=== PATIENT | female | born 1930 | race Caucasian/White ===

== ENCOUNTER → 2017-04-14 | Outpatient (CLI) | payer MEDICARE, OTHER ==
[~2017-04-14] MED LIST: ALN70T PO; LEVO500T2 PO; LOSA50TA36 PO; LSRT50T PO; NEBI5TAB8 PC
--- NOTE | 2017-04-15 10:53 | Diagnostic Imaging Report ---
Bilateral screening mammogram The current study was also evaluated with a Computer Aided Detection (CAD) system. Indication: Screening. No current complaints stated on the questionnaire. COMPARISON: 02/27/16 FINDINGS: The breasts are composed of scattered fibroglandular densities. No mass, architectural distortion or suspicious cluster of calcifications seen. Allowing for technique and positional differences, no suspicious change is seen. IMPRESSION: No significant change. ACR BI-RADS Category 2: Benign findings. Result letter will be mailed to the patient. Note: At least 10% of breast cancer is not imaged by mammography. Dictated by: Dictated on workstation # [id number]
== END ==
LOC: RAD 09:46
PROVIDERS: ATTEND Family Medicine
DX: Z12.31 Encounter for screening mammogram for malignant neoplasm of breast (principal)
CPT/HCPCS: 77067

== ENCOUNTER 2017-07-27 21:59 | Observation (INO) | payer MEDICARE, OTHER ==
[~2017-07-27] VITALS: Ht 167.6 cm; Wt 56.7 kg
[2017-07-27] MEDS ORDERED: ASPIRIN 81 MG CHEW (CHILDREN'S ASA) ONE (22:04)
[2017-07-27] MEDS ORDERED: RX-NITROGLYCERIN 0.4 MG TAB BTL 25'S SL ONE (22:04)
--- NOTE | 2017-07-27 22:27 | ED Chest Pain ---
General Chief Complaint: Chest Pain Stated Complaint: CHEST PAIN Source: patient Exam Limitations: no limitations History of Present Illness Time seen by provider: 22:23 Initial Comments Patient present to ER by EMS with a chief complaint of chest pressure that started around 1:00 this afternoon progressively gotten worse it is substernal and radiates to the right chest. There is no arm shoulder neck or jaw involvement. She has no numbness, chills, nausea, shortness of breath. She has no cough or fevers. She has no dysuria, constipation, diarrhea. She is not known to have any cardiac history. She says she had an echo one ago that may have shown some regurgitation of one of her bowels. She does not use tobacco products. No alcohol. No thyroid disease however she does take by systolic and amlodipine for blood pressure. Allergies and Home Medications Allergies Coded Allergies: No Known Drug Allergies (Unverified , 04/13/12) Home Medications Nebivolol HCl 5 Mg Tablet, 1 TAB PC DAILY, #90 (Reported) Review of Systems Constitutional: No chills, No diaphoresis, No fever, No malaise EENTM: No Double Vision, No Eye Pain Respiratory: Denies Cough, Denies Shortness of Air Cardiovascular: See HPI (chest pressure), Denies Chest Pain, Denies Irregular Heart Rate, Denies Lightheadedness, Denies Palpitations, Denies Syncope Gastrointestinal: Denies Abdomen Distended, Denies Abdominal Pain, Denies Constipated, Denies Diarrhea, Denies Nausea Genitourinary: Denies Burning, Denies Discharge Musculoskeletal: No back pain, No joint pain Skin: No pruritus, No rash Psychiatric/Neurological: Denies Headache, Denies Numbness, Denies Paresthesia Past Hlmhcmr-Rhoram-Mxnylb Hx Patient Social History Alcohol Use: Denies Use Recreational Drug Use: No Smoking Status: Never a Smoker Recent Foreign Travel: No Contact w/Someone Who Travel: No Recent Hopitalizations: No Physical Abuse: No Sexual Abuse: No Immunizations Up To Date Date of Pneumonia Vaccine: Mar 12, 2005 Seasonal Allergies Seasonal Allergies: No Surgeries History of Surgeries: Yes Surgeries: Adenoidectomy, Breast, Hysterectomy, Lumpectomy, Oophorectomy, Tonsillectomy Respiratory History of Respiratory Disorde: No Cardiovascular History of Cardiac Disorders: Yes Cardiac Disorders: Hypertension Neurological History of Neurological Disord: No 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, Menopausal Genitourinary Genitourinary Disorders: UTI-Chronic Gastrointestinal History of Gastrointestinal Di: No Gastrointestinal Disorders: Gastroesophageal Reflux Musculoskeletal History of Musculoskeletal Dis: Yes Musculoskeletal Disorders: Arthritis Endocrine History of Endocrine Disorders: No HEENT HEENT Disorders: Macular Degeneration Cancer History of Cancer: Yes Cancer: Breast Psychosocial History of Psychiatric Problem: No Suicide Risk Score: 0 Integumentary History of Skin or Integumenta: No Blood Transfusions History of Blood Disorders: No Adverse Reaction to a Blood Tr: No Physical Exam Vital Signs Vital Sign - Last 12Hours 07/27/17 22:00 Temp 97.5 Pulse 93 Resp 18 B/P (MAP) 156/75 Pulse Ox 99 O2 Delivery Nasal Cannula O2 Flow Rate 2.0 Capillary Refill : Less Than 3 Seconds General Appearance: No Apparent Distress, WD/WN HEENT: PERRL/EOMI, Pharynx Normal Neck: Full Range of Motion, Supple Respiratory: Chest Non Tender, Lungs Clear, Normal Breath Sounds, No Accessory Muscle Use Cardiovascular: Regular Rate, Rhythm, No Edema, No Gallop, No JVD, Normal Peripheral Pulses Gastrointestinal: Normal Bowel Sounds, Non Tender, Soft Extremity: Normal Capillary Refill, Normal Inspection, Non Tender, No Pedal Edema Neurologic/Psychiatric: Alert, Oriented x3 Skin: Normal Color, Warm/Dry Progress/Results/Core Measures Results/Orders Lab Results Laboratory Tests Test 07/27/17 22:09 Range/Units White Blood Count 7.5 4.3-11.0 10^3/uL Red Blood Count 4.41 4.35-5.85 10^6/uL Hemoglobin 13.4 11.5-16.0 G/DL Hematocrit 42 35-52 % Mean Corpuscular Volume 94 80-99 FL Mean Corpuscular Hemoglobin 30 25-34 PG Mean Corpuscular Hemoglobin Concent 32 32-36 G/DL Red Cell Distribution Width 13.1 10.0-14.5 % Platelet Count 226 130-400 10^3/uL Mean Platelet Volume 10.8 H 7.4-10.4 FL Neutrophils (%) (Auto) 55 42-75 % Lymphocytes (%) (Auto) 30 12-44 % Monocytes (%) (Auto) 9 0-12 % Eosinophils (%) (Auto) 5 0-10 % Basophils (%) (Auto) 1 0-10 % Neutrophils # (Auto) 4.1 1.8-7.8 X 10^3 Lymphocytes # (Auto) 2.3 1.0-4.0 X 10^3 Monocytes # (Auto) 0.7 0.0-1.0 X 10^3 Eosinophils # (Auto) 0.4 H 0.0-0.3 10^3/uL Basophils # (Auto) 0.1 0.0-0.1 10^3/uL Prothrombin Time 11.9 L 12.2-14.7 SEC INR Comment 0.9 0.8-1.4 Activated Partial Thromboplast Time 28 24-35 SEC Sodium Level 138 135-145 MMOL/L Potassium Level 3.8 3.6-5.0 MMOL/L Chloride Level 103 98-107 MMOL/L Carbon Dioxide Level 25 21-32 MMOL/L Anion Gap 10 5-14 MMOL/L Blood Urea Nitrogen 14 7-18 MG/DL Creatinine 0.75 0.60-1.30 MG/DL Estimat Glomerular Filtration Rate > 60 BUN/Creatinine Ratio 19 Glucose Level 117 H 70-105 MG/DL Calcium Level 9.4 8.5-10.1 MG/DL Magnesium Level 2.3 1.8-2.4 MG/DL Total Bilirubin 0.2 0.1-1.0 MG/DL Aspartate Amino Transf (AST/SGOT) 21 5-34 U/L Alanine Aminotransferase (ALT/SGPT) 19 0-55 U/L Alkaline Phosphatase 69 40-136 U/L Myoglobin 34.4 10.0-92.0 NG/ML Troponin I < 0.30 <0.30 NG/ML Total Protein 6.9 6.4-8.2 GM/DL Albumin 3.8 3.2-4.5 GM/DL My Orders Orders - JO ANN DOBBINS Aspirin Chewable Tablet (Baby Aspirin Ch (07/27/17 22:04) Rx-Nitroglycerin Sl Tabs (Rx-Nitrostat S (07/27/17 22:04) Cbc With Automated Diff (07/27/17 22:22) Magnesium (07/27/17 22:22) Chest 1 View, Ap/Pa Only (07/27/17 22:22) Ekg Tracing (07/27/17 22:22) Cardiac Profile 1 (07/27/17 22:22) Comprehensive Metabolic Panel (07/27/17 22:22) Myoglobin Serum (07/27/17 22:22) Protime With Inr (07/27/17 22:22) Partial Thromboplastin Time (07/27/17 22:22) O2 (07/27/17 22:22) Monitor-Rhythm Ecg Trace Only (07/27/17 22:22) Lipid Panel (07/28/17 06:00) Aspirin Chewable Tablet (Baby Aspirin Ch (07/27/17 22:30) Rx-Nitroglycerin Sl Tabs (Rx-Nitrostat S (07/27/17 22:30) Saline Lock/Iv-Start (07/27/17 22:22) Lidocaine 2% Viscous 15 Ml (Xylocaine Vi (07/27/17 22:45) Antacid Suspension (Mylanta Suspension (07/27/17 22:45) Medications Given in ED Current Medications Medications Dose Ordered Sig/Moncho Route Start Time Stop Time Status Last Admin Dose Admin Al Hydrox/Mg Hydrox/Simethicone 30 ml ONCE ONCE PO 07/27/17 22:45 07/27/17 22:46 DC 07/27/17 22:51 30 ML Aspirin 81 mg STK-MED ONCE .ROUTE 07/27/17 22:04 07/27/17 22:11 DC 07/27/17 22:13 81 MG Lidocaine HCl 15 ml ONCE ONCE PO 07/27/17 22:45 07/27/17 22:46 DC 07/27/17 22:51 15 ML Nitroglycerin 0.4 mg STK-MED ONCE SL 07/27/17 22:04 07/27/17 22:12 DC 07/27/17 22:14 0.4 MG Vital Signs/I&O Vital Sign - Last 12Hours 07/27/17 07/27/17 07/27/17 22:00 22:00 22:00 Temp 97.5 Pulse 93 Resp 18 B/P (MAP) 156/75 Pulse Ox 99 99 O2 Delivery Nasal Cannula Nasal Cannula Room Air O2 Flow Rate 2.0 2.00 Progress Note : Time: 22:33 Progress Note Concern for atypical ACS presentation versus GI versus other. We'll go ahead and get a GI cocktail to her. Initial EKG does not demonstrate a STEMI. ECG Initial ECG Impression Date: Jul 27, 2017 Initial ECG Impression Time: 22:01 Initial ECG Rate: 93 Initial ECG Rhythm: Normal Sinus Initial ECG Intervals: TX (228) Initial ECG Impression: 1st Degree AV Block Initial ECG Comparisson: No Previous ECG Available Comment No ST segment depression or elevation. Diagnostic Imaging Diagonstic Imaging: Xray Plain Films/CT/US/NM/MRI: chest Comments No acute cardiopulmonary processes. Reviewed: Reviewed by Me Departure Impression Impression: Primary Impression: Chest tightness or pressure Additional Impression: ACS (acute coronary syndrome) Disposition: ADMITTED INPATIENT Condition: Stable Admissions Decision to Admit Reason: Admit from ER (General) Decision to Admit/Date: Jul 27, 2017 Time/Decision to Admit Time: 00:14 Departure-Patient Inst. Referrals: DONALD ANDRE DO (PCP/Family) Primary Care Physician Copy Copies To 1: DONALD ANDRE TITUS J Jul 27, 2017 22:27
[2017-07-27] MEDS ORDERED: ASPIRIN 81 MG CHEW (CHILDREN'S ASA) PO ONE (22:30)
[2017-07-27] MEDS ORDERED: RX-NITROGLYCERIN 0.4 MG TAB BTL 25'S SL PRN (22:30)
[2017-07-27 22:32] LABS: BASOPHILS # (AUTO) 0.1 10^3/uL (0.0-0.1); BASOPHILS % (AUTO) 1 % (0-10); EOSINOPHILS # (AUTO) 0.4 10^3/uL (0.0-0.3); EOSINOPHILS % (AUTO) 5 % (0-10); LYMPHOCYTES # (AUTO) 2.3 X 10^3 (1.0-4.0); LYMPHOCYTES % (AUTO) 30 % (12-44); MEAN CORPUSCULAR HEMOGLOBIN 30 PG (25-34); MEAN CORPUSCULAR HGB CONC 32 G/DL (32-36); MEAN CORPUSCULAR VOLUME 94 FL (80-99); MEAN PLATELET VOLUME 10.8 FL (7.4-10.4); MONOCYTES # (AUTO) 0.7 X 10^3 (0.0-1.0); MONOCYTES % (AUTO) 9 % (0-12); NEUTROPHILS # (AUTO) 4.1 X 10^3 (1.8-7.8); NEUTROPHILS % (AUTO) 55 % (42-75); PLATELET COUNT 226 10^3/uL (130-400); RED BLOOD COUNT 4.41 10^6/uL (4.35-5.85); RED CELL DISTRIBUTION WIDTH 13.1 % (10.0-14.5); WHITE BLOOD COUNT 7.5 10^3/uL (4.3-11.0)
[2017-07-27 22:36] LABS: INR 0.9 (0.8-1.4); PROTHROMBIN TIME PATIENT 11.9 SEC (12.2-14.7)
[2017-07-27] MEDS ORDERED: ANTACID SUSP 30 ML UDC (MYLANTA) PO ONE (22:45)
[2017-07-27] MEDS ORDERED: LIDOCAINE 2% VISCOUS 15 ML UDC PO ONE (22:45)
[2017-07-27 22:57] LABS: ALANINE AMINOTRANSFERASE 19 U/L (0-55); ALBUMIN 3.8 GM/DL (3.2-4.5); ANION GAP 10 MMOL/L (5-14); ASPARTATE AMINO TRANSFERASE 21 U/L (5-34); BILIRUBIN,TOTAL 0.2 MG/DL (0.1-1.0); BLOOD UREA NITROGEN 14 MG/DL (7-18); BUN/CREATININE RATIO 19; CALCIUM 9.4 MG/DL (8.5-10.1); CARBON DIOXIDE 25 MMOL/L (21-32); CHLORIDE 103 MMOL/L (98-107); CREATININE SERUM 0.75 MG/DL (0.60-1.30); GFR ESTIMATED > 60; GLUCOSE 117 MG/DL (70-105); MAGNESIUM 2.3 MG/DL (1.8-2.4); POTASSIUM 3.8 MMOL/L (3.6-5.0); SODIUM 138 MMOL/L (135-145); TOTAL PROTEIN 6.9 GM/DL (6.4-8.2)
[2017-07-27 23:04] LABS: MYOGLOBIN SERUM 34.4 NG/ML (10.0-92.0)
[2017-07-28] MEDS ORDERED: NS IV 1000 ML 1,000 ML ONE (01:16)
[2017-07-28] MEDS ORDERED: NS IV 1000 ML 1,000 ML IV SCH (02:15)
[2017-07-28] MEDS ORDERED: ONDANSETRON 4 MG/2 ML (SDV) Z0FRAN IV PRN (02:15)
[2017-07-28] MEDS ORDERED: morphine INJ 4 MG/ML 1 ML (VIAL/SYRINGE) IV PRN (02:15)
[2017-07-28] MEDS ORDERED: ANTACID SUSP 30 ML UDC (MYLANTA) PO PRN (02:15)
[2017-07-28] MEDS ORDERED: NITROGLYCERIN SUBLINGUAL 0.4 MG TAB (NITROSTAT) SL PRN (02:15)
[2017-07-28 03:35] VITALS: BP 137/69
[2017-07-28 04:50] LABS: CHOLESTEROL 201 MG/DL (< 200); DIRECT LDL 124 MG/DL (1-129); TRIGLYCERIDES 38 MG/DL (<150); VLDL CHOLESTEROL 8 MG/DL (5-40)
[2017-07-28 08:00] VITALS: BP 152/65
[2017-07-28] MEDS ORDERED: AMLO5TAB2 PO (08:06)
[2017-07-28] MEDS ORDERED: NEBI5TAB8 PO (08:06)
[2017-07-28] MEDS ORDERED: CALC-6 PO (08:08)
[2017-07-28] MEDS ORDERED: VIT1CAPS44 PO (08:08)
--- NOTE | 2017-07-28 08:08 | Diagnostic Imaging Report ---
INDICATION: Intermittent chest pain. COMPARISON: 08/25/2016. FINDINGS: Single frontal view of the chest demonstrates normal heart size and pulmonary vascularity. The lungs are well aerated and clear. No large pleural effusion or pneumothorax is seen. The visualized osseous structures show no acute abnormalities. IMPRESSION: No acute cardiopulmonary process. Dictated by: Dictated on workstation # [id number]
[2017-07-28] MEDS ORDERED: amLODIPine 5 MG (NORVASC) TAB PO SCH (09:00)
[2017-07-28] MEDS ORDERED: NEBIVOLOL 5 MG TAB (BYSTOLIC) PO SCH ×2 (09:00→21:00)
[2017-07-28] MEDS ORDERED: lisINopril 5 MG (PRINIVIL) TABLET PO SCH (09:00)
[2017-07-28] MEDS: ASPIRIN E.C. 325 MG (ECOTRIN) TABLET PO SCH (10:52)
[2017-07-28 12:00] VITALS: BP 157/70
--- NOTE | 2017-07-28 12:33 | History & Physicial ---
History of Present Illness History of Present Illness Reason for visit/HPI This is an 87 year old female with a history of Hypertension and GERD who presented to the emergency room with substernal chest pressure radiating to her right shoulder. Her EKG showed no acute S-T segment changes and her cardiac enzymes were negative, however, it was decided to admit her to rule out any cardiac etiology. At this time the patient has only had one more mild episode of chest pressure since admission and this did occur after drinking some coffee. Date of Admission Jul 28, 2017 at 00:20 Date Seen by Provider: Jul 28, 2017 Time Seen by Provider: 12:24 I consulted on this patient on 07/28/17 12:24 Attending Physician Seda Garcia MD Admitting Physician Elly Andre DO Consult Allergies and Home Medications Allergies Coded Allergies: No Known Drug Allergies (Unverified , 04/13/12) Home Medications Amlodipine Besylate 5 Mg Tablet, 5 MG PO DAILY, (Reported) Calcium Carbonate/Vitamin D3 1 Each Tablet, 1 CAP PO 1200, (Reported) Nebivolol HCl 5 Mg Tablet, 5 MG PO HS, (Reported) Vit C/E/Zn/Coppr/Lutein/Zeaxan 1 Each Capsule, 1 CAP PO 1200,1800, (Reported) Past Lwtxnbc-Gtkoeg-Vruthf Hx Patient Social History Alcohol Use: Denies Use Recreational Drug Use: No Smoking Status: Never a Smoker Physical Abuse Screen: No Sexual Abuse: No Recent Foreign Travel: No Contact w/other who traveled: No Recent Hopitalizations: No Recent Infectious Disease Expo: No Immunizations Up To Date Date of Pneumonia Vaccine: Mar 12, 2005 Seasonal Allergies Seasonal Allergies: No Surgeries Yes Adenoidectomy, Breast, Hysterectomy, Lumpectomy, Oophorectomy, Tonsillectomy Respiratory No Cardiovascular Yes Hypertension 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, Menopausal Genitourinary No UTI-Chronic Gastrointestinal Yes Gastroesophageal Reflux Musculoskeletal Yes Arthritis Endocrine History of Endocrine Disorders: No HEENT History of HEENT Disorders: Yes HEENT Disorders: Macular Degeneration Cancer Yes Breast Psychosocial History of Psychiatric Problem: No Integumentary History of Skin or Integumenta: No Blood Transfusions History of Blood Disorders: No Adverse Reaction to a Blood Tr: No Constitutional: No no symptoms reported, No see HPI, No chills, No diaphoresis , No dizziness, No fever, No malaise, No weakness, No weight gain, No weight loss, No other EENTM: No see HPI, No no symptoms reported, No ear discharge, No hearing loss, No ear pain, No blurred vision, No double vision, No eye pain, No tearing, No vision loss, No dental problems, No hoarseness, No mouth pain, No mouth swelling , No epistaxis, No nose congestion, No nose pain, No throat pain, No throat swelling, No other Respiratory: No no symptoms reported, No see HPI, No cough, No dyspnea on exertion, No hemoptysis, No orthopnea, No phlegm, No short of breath, No stridor , No wheezing, No other Cardiovascular: chest pain (substernal radiating to right shoulder) Gastrointestinal: abdominal pain (epigastric) Genitourinary: No no symptoms reported, No see HPI, No decreased output, No discharge, No dysuria, No frequency, No hematuria, No hesitancy, No incontinence , No nocturia, No pain, No other Musculoskeletal: No no symptoms reported, No see HPI, No back pain, No gout, No joint pain, No joint swelling, No muscle pain, No muscle stiffness, No muscle cramps, No muscle twitching, No muscle weakness, No neck pain, No other Skin: No no symptoms reported, No see HPI, No change in color, No change in hair/nails, No dryness, No hx of skin cancer, No lesions, No lumps, No pruritus , No rash, No other Psychiatric/Neurological: Denies No Symptoms Reported, Denies See HPI, Denies Anxiety, Denies Depressed, Denies Emotional Problems, Denies Headache, Denies Numbness, Denies Paresthesia, Denies Pre-Existing Deficit, Denies Seizure, Denies Tingling, Denies Tremors, Denies Weakness, Denies Other Physical Exam Vital Signs Vital Sign - Last 12Hours 07/27/17 22:00 Temp 97.5 Pulse 93 Resp 18 B/P (MAP) 156/75 Pulse Ox 99 O2 Delivery Nasal Cannula O2 Flow Rate 2.0 Capillary Refill : Less Than 3 Seconds General Appearance: No Apparent Distress HEENT: Pharynx Normal Neck: Supple Respiratory: Lungs Clear Cardiovascular: Regular Rate, Rhythm, Systolic Murmur, Gallop/S4 Gastrointestinal: Normal Bowel Sounds, Soft, Tenderness (mild epigastric) Rectal: Deferred Back: No CVA Tenderness Extremity: Non Tender, No Calf Tenderness, No Pedal Edema Neurologic/Psychiatric: Alert, Oriented x3 Skin: Normal Color, Warm/Dry Comments Laboratory Tests 07/27/17 22:09: White Blood Count 7.5, Red Blood Count 4.41, Hemoglobin 13.4, Hematocrit 42, Mean Corpuscular Volume 94, Mean Corpuscular Hemoglobin 30, Mean Corpuscular Hemoglobin Concent 32, Red Cell Distribution Width 13.1, Platelet Count 226, Mean Platelet Volume 10.8H, Neutrophils (%) (Auto) 55, Lymphocytes (%) (Auto) 30 , Monocytes (%) (Auto) 9, Eosinophils (%) (Auto) 5, Basophils (%) (Auto) 1, Neutrophils # (Auto) 4.1, Lymphocytes # (Auto) 2.3, Monocytes # (Auto) 0.7, Eosinophils # (Auto) 0.4H, Basophils # (Auto) 0.1, Prothrombin Time 11.9L, INR Comment 0.9, Activated Partial Thromboplast Time 28, Sodium Level 138, Potassium Level 3.8, Chloride Level 103, Carbon Dioxide Level 25, Anion Gap 10, Blood Urea Nitrogen 14, Creatinine 0.75, Estimat Glomerular Filtration Rate > 60 , BUN/Creatinine Ratio 19, Glucose Level 117H, Calcium Level 9.4, Magnesium Level 2.3, Total Bilirubin 0.2, Aspartate Amino Transf (AST/SGOT) 21, Alanine Aminotransferase (ALT/SGPT) 19, Alkaline Phosphatase 69, Myoglobin 34.4, Troponin I < 0.30, Total Protein 6.9, Albumin 3.8 07/28/17 03:55: Troponin I < 0.30, Triglycerides Level 38, Cholesterol Level 201H, LDL Cholesterol Direct 124, VLDL Cholesterol 8, HDL Cholesterol 69H 07/28/17 10:00: Troponin I < 0.30 Assessment/Plan Assessment and Plan 1. Nonspecific Chest Pain--repeat cardiac enzymes negative and no abnormalities on telemetry--will check 2-D ECHO and let patient eat--if pain returns with eating then is likely GI etiology 2. Hypertension--back on home meds 3. History of GERD--will see if has reoccurrence of CP with diet Problems: Clinical Quality Measures AMI/AHF: ASA po Prior to arrival: No DVT/VTE Risk/Contraindication: Risk Factor Score Per Nursin RFS Level Per Nursing on Admit: 2=Moderate ELLY ANDRE DO Jul 28, 2017 12:33
[2017-07-28] MEDS ORDERED: PATIENT MAY USE OWN MEDS, ALL MC SCH (13:30)
[2017-07-28 16:05] VITALS: BP 135/62
[2017-07-28] MEDS: ATORVASTATIN 40 MG (LIPITOR) TABLET PO SCH ×2 (20:03→20:07)
[2017-07-28 20:18] VITALS: BP 134/62
[2017-07-29] VITALS: BP 119/62
[2017-07-29 04:00] VITALS: BP 152/66
[2017-07-29 08:00] VITALS: BP 147/67
[2017-07-29] MEDS ORDERED: amLODIPine 5 MG (NORVASC) TAB PO SCH (09:00)
[2017-07-29] MEDS ORDERED: ASPI-999 PO (09:42)
--- NOTE | 2017-07-29 09:44 | Discharge Inst-Simple/Standard ---
Discharge Inst-Standard Patient Instructions/Follow Up Plan of Care/Instructions/FU: Fwup with Dr. Woodruff in 2 weeks and me after Dr. Woodruff appointment Activity as Tolerated: Yes Discharge Diet: Cardiac Diet DONALD ANDRE DO Jul 29, 2017 9:44 am
[2017-07-29] MEDS: ASPIRIN E.C. 325 MG (ECOTRIN) TABLET PO SCH (10:20)
[2017-07-29 10:45] VITALS: BP 148/88
== END 2017-07-29 09:43 | disposition home or self-care (01) ==
LOC: EDUNIT# 21:59 → ER 22:01 → UNDOADMOB 07-28 00:20 → 4TH 07-28 00:20
PROVIDERS: ADMIT Family Medicine; ATTEND Family Medicine
DX: R07.9 Chest pain, unspecified (principal); K21.9 Gastro-esophageal reflux disease without esophagitis; I10 Essential (primary) hypertension; Z79.899 Other long term (current) drug therapy
CPT/HCPCS: 36415; 71010; 80053; 80061; 83735; 83874; 84484; 85025; 85610; 85730; 93005; 93041; 93306; G0378

== ENCOUNTER → 2017-09-24 | Outpatient (CLI) | payer MEDICARE, OTHER ==
[~2017-09-24] VITALS: Ht 167.6 cm; Wt 57.2 kg
[~2017-09-24] MED LIST changes: +AMLO5TAB2 PO; +ASPI-999 PO; +CALC-6 PO; +CATHETER FLUSH 10 ML SYR IV PRN; +NEBI5TAB8 PO; +REGADENOSON 0.4 MG/5 ML SYR (LEXISCAN) IV ONE; +VIT1CAPS44 PO
[2017-09-24 09:43] VITALS: BP 156/76
[2017-09-24 09:47] VITALS: BP 158/74
--- NOTE | 2017-09-25 01:48 | STRESS TEST ---
DATE OF SERVICE: 09/24/2017 LEXISCAN MYOVIEW STRESS TEST: REFERRING PHYSICIAN: Dr. Valdez. Baseline heart rate is 75. Baseline blood pressure 163/64. Baseline EKG is sinus rhythm with atrial bigeminy. SUMMARY: The patient was injected with 10.12 mCi of technetium-99 Myoview and the resting images were obtained. Then, the patient received 0.4 mg of Lexiscan followed by 30.6 mCi of technetium-99 Myoview. Throughout the test, there were no EKG changes. The resting and stressed images were reviewed and compared in the short axis, horizontal long axis and vertical long axis views. Review of the images showed good radiotracer uptake with no significant ischemia or infarction. SSS is 5, SDS 1, TID value 1.07. On the gated images, the left ventricle appeared to be normal size with normal contractility. Calculated ejection fraction 75%. CONCLUSION: 1. The patient tolerated Lexiscan well. 2. No significant ischemia or infarction on SPECT images. 3. Normal left ventricular size with normal contractility. Calculated ejection fraction 75%. Job ID: [id number] DocumentID: [id number] Dictated Date: 09/24/2017 14:49:13 Supervisor Roving Date: 09/24/2017 19:47:08 Dictated By: TAMEKA LOPEZ MD
== END ==
LOC: CARD 08:06
PROVIDERS: ATTEND Internal Medicine Cardiovascular Disease
DX: R07.9 Chest pain, unspecified (principal); E78.2 Mixed hyperlipidemia; I07.1 Rheumatic tricuspid insufficiency
CPT/HCPCS: 78452; 93017

== ENCOUNTER → 2018-01-12 | Outpatient (CLI) | payer MEDICARE, OTHER ==
[~2018-01-12] MED LIST changes: -CATHETER FLUSH 10 ML SYR IV PRN; -REGADENOSON 0.4 MG/5 ML SYR (LEXISCAN) IV ONE
--- NOTE | 2018-01-12 14:37 | Diagnostic Imaging Report ---
PROCEDURE: CT abdomen and pelvis without contrast. TECHNIQUE: Multiple contiguous axial images were obtained through the abdomen and pelvis without the use of intravenous contrast. INDICATION: Abdominal pain, diarrhea, burping, unsettled stomach. FINDINGS: There is mild colonic constipation without focal impaction. The stomach was not pathologically dilated. The gallbladder is contracted, limiting its evaluation. There may be an intraluminal stone. There is no bile duct dilatation. There are multiple pelvic and gonadal vein phleboliths which confound detection of ureteral stone. There is no hydronephrosis, perinephric or periureteric edema. There is no convincing evidence of opaque urolithiases. The urinary bladder is unopacified and appeared nonfocal. The aorta and iliac vessels are densely calcified but nonaneurysmal. There is a simple-appearing thin-walled left pelvic cyst at 2.6 cm, probably adnexa but may be chronic mesenteric cyst. There is noninflamed diverticulosis of the sigmoid. There is no ascites, abscess, hematoma, or other acute fluid collection. No focal inflammatory process. There is no free air. There is rightward-convexity degenerative rotoscoliotic curvature of the lumbar spine. No acute bony abnormality. IMPRESSION: 1. Probable stone within the lumen of the contracted gallbladder without biliary dilatation or evidence of acute cholecystitis. 2. No hydronephrosis. The venous calcifications could obscure from visualization of small ureteral stone. No appreciable ureteral stone or urinary tract obstruction. 3. Simple-appearing left pelvic cyst, likely ovarian. Noninflamed sigmoid diverticulosis. 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 Dictated by: Dictated on workstation # [id number]
== END ==
LOC: RAD 13:12
PROVIDERS: ATTEND Family Medicine
DX: K57.30 Diverticulosis of large intestine without perforation or abscess without bleeding (principal); N94.89 Other specified conditions associated with female genital organs and menstrual cycle; M47.816 Spondylosis without myelopathy or radiculopathy, lumbar region; M41.9 Scoliosis, unspecified
CPT/HCPCS: 74176

== ENCOUNTER → 2018-01-21 | Outpatient (CLI) | payer MEDICARE, OTHER ==
--- NOTE | 2018-01-21 08:58 | Diagnostic Imaging Report ---
PROCEDURE: US Gallbladder. TECHNIQUE: Multiple Real-time grayscale images were obtained over the right upper quadrant in various projections. INDICATION: Abdominal pain. FINDINGS: No focal hepatic abnormality is identified. There is no evidence of biliary ductal dilatation. There is an echogenic 1.7 cm calculus within the lumen of the gallbladder with posterior acoustic shadowing. No definite wall thickening or pericholecystic fluid is identified. The stone appears to be near the gallbladder neck. No pancreatic or right renal abnormality is documented and there is no evidence of free fluid. IMPRESSION: There is a 1.7 cm stone in the region of the gallbladder neck without associated wall thickening or pericholecystic fluid. There is no evidence of biliary ductal dilatation or other acute abnormality. Dictated by: Dictated on workstation # [id number]
== END ==
LOC: RAD 07:37
PROVIDERS: ATTEND Family Medicine
DX: K80.20 Calculus of gallbladder without cholecystitis without obstruction (principal)
CPT/HCPCS: 76705

== ENCOUNTER → 2018-03-03 | Outpatient (CLI) | payer MEDICARE, OTHER ==
--- NOTE | 2018-03-03 12:50 | Diagnostic Imaging Report ---
INDICATION: Left ankle pain. 3 views were obtained. FINDINGS: The alignment of the ankle is normal. The plafonds and talar dome are intact. Ankle mortise is symmetric. There is no fracture or dislocation. There are mild degenerative changes. IMPRESSION: Mild degenerative changes otherwise unremarkable. Dictated by: Dictated on workstation # [id number]
== END ==
LOC: RAD 12:06
PROVIDERS: ATTEND Family Medicine
DX: M19.072 Primary osteoarthritis, left ankle and foot (principal)
CPT/HCPCS: 73610

== ENCOUNTER → 2018-06-01 | Outpatient (CLI) | payer MEDICARE, OTHER ==
--- NOTE | 2018-06-01 14:17 | Diagnostic Imaging Report ---
INDICATION: Routine screening. COMPARISON: 04/14/2017 and 02/27/2016. TECHNIQUE: 2D and 3D bilateral screening mammography was performed with CAD. FINDINGS: Both breasts are heterogeneously dense, limiting the sensitivity of mammography. Benign-appearing calcifications are noted bilaterally and appear stable. No new mass or malignant appearing microcalcifications are seen. The axillae are unremarkable. IMPRESSION: No mammographic features suspicious for malignancy are identified. ACR BI-RADS Category 2: Benign findings. Result letter will be mailed to the patient. Note: At least 10% of breast cancer is not imaged by mammography. Dictated by: Dictated on workstation # [id number]
== END ==
LOC: RAD 11:29
PROVIDERS: ATTEND Family Medicine
DX: Z12.31 Encounter for screening mammogram for malignant neoplasm of breast (principal)
CPT/HCPCS: 77067

== ENCOUNTER 2019-04-28 12:53 | Emergency (ER) | payer MEDICARE, OTHER ==
[~2019-04-28] VITALS: Ht 167.6 cm; Wt 55.8 kg
[~2019-04-28 12:53] MED LIST changes: -AMLO5TAB2 PO; +AMLO5TAB9 PO; -LOSA50TA36 PO; +LOSA50TA63 PO
--- NOTE | 2019-04-28 14:28 | ED Cardiac General ---
History of Present Illness General Chief Complaint: Cardiac/General Problems Stated Complaint: WEAKNESS;HIGH BP Nursing Triage Note: PATIENT STATES THAT SHE HAS RECENTLY BEEN HAVING HIGH BP. SHE SAW DR VALDEZ'S RECORDS ASSISTANT YESTERDAY AND HER AMLODIPINE WAS INCREASED TO 5MG DAILY. SHE STARTED THIS TODAY. HOWEVER, HER BP CONTINUES TO BE ELEVATED. IT WAS 196/98 WITH HR 104 AT NOON TODAY. VENECIAN COMPLAINS OF FEELING HOT AND WOOZY. Source: patient Exam Limitations: no limitations History of Present Illness Date Seen by Provider: April 28, 2019 Time Seen by Provider: 14:28 Initial Comments 88-year-old female who presents to the emergency room with complaints of intermittent high blood pressure. She was seen at Dr. Valdez's office yesterday and increased her amlodipine 5 mg daily that she started taking this morning. She reports that she felt flushed today and checked her blood pressure and reports that it was 196/98 with a heart rate of 104. She is asymptomatic on arrival to the emergency room and her blood pressure has improved. She is on arrival to the emergency room. Timing/Duration: 24 hours Associated Systoms: Denies Symptoms Allergies and Home Medications Allergies Coded Allergies: No Known Drug Allergies (Unverified , 04/13/12) Home Medications Amlodipine Besylate 5 Mg Tablet, 5 MG PO DAILY, (Reported) Aspirin 81 Mg Tab.chew, 81 MG PO DAILY Prescribed by: DONALD VALDEZ on 07/29/17 0942 Calcium Carbonate/Vitamin D3 1 Each Tablet, 1 CAP PO 1200, (Reported) Nebivolol HCl 5 Mg Tablet, 5 MG PO HS, (Reported) Vit C/E/Zn/Coppr/Lutein/Zeaxan 1 Each Capsule, 1 CAP PO 1200,1800, (Reported) Patient Home Medication List Home Medication List Reviewed: Yes Review of Systems Review of Systems Constitutional: see HPI; No chills, No fever Cardiovascular: See HPI, Other (hypertension) All Other Systems Reviewed Negative Unless Noted: Yes Past Dqtajcc-Purxvg-Rglutd Hx Past Med/Social Hx: Reviewed Nursing Past Med/Soc Hx Patient Social History Alcohol Use: Rarely Uses Recreational Drug Use: No Smoking Status: Never a Smoker 2nd Hand Smoke Exposure: No Recent Foreign Travel: No Contact w/Someone Who Travel: No Recent Infectious Disease Expo: No Recent Hopitalizations: No Immunizations Up To Date Date of Pneumonia Vaccine: Mar 12, 2005 Seasonal Allergies Seasonal Allergies: No Past Medical History Surgeries: Yes Adenoidectomy, Breast, Hysterectomy, Lumpectomy, Oophorectomy, Tonsillectomy Respiratory: No Cardiac: Yes Hypertension 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 History: Hysterectomy, Menopausal Genitourinary: No UTI-Chronic Gastrointestinal: Yes Gastroesophageal Reflux Musculoskeletal: Yes Arthritis Endocrine: No HEENT: Yes Macular Degeneration Cancer: Yes Breast Psychosocial: No Integumentary: No Blood Disorders: No Adverse Reaction/Blood Tranf: No Family Medical History Reviewed Nursing Family Hx Physical Exam Vital Signs Vital Signs - First Documented 04/28/19 04/28/19 13:00 16:07 Temp 98.9 Pulse 86 Resp 18 B/P (MAP) 164/65 (98) Pulse Ox 97 O2 Delivery Room Air Capillary Refill : Less Than 3 Seconds Height, Weight, BMI Height: 5'6.00" Weight: 123lbs. 0oz. [id number]; 20.3 BMI Method:Actual General Appearance: No Apparent Distress, WD/WN HEENT: PERRL/EOMI, TMs Normal, Normal ENT Inspection, Pharynx Normal Respiratory: Chest Non Tender, Lungs Clear, Normal Breath Sounds, No Accessory Muscle Use, No Respiratory Distress Cardiovascular: Regular Rate, Rhythm, No Edema, No Gallop, No JVD, No Murmur, Normal Peripheral Pulses Gastrointestinal: Normal Bowel Sounds, No Organomegaly, No Pulsatile Mass, Non Tender Extremity: Normal Capillary Refill, No Pedal Edema Neurologic/Psychiatric: Alert, Oriented x3, Normal Mood/Affect Skin: Normal Color, Warm/Dry Progress/Results/Core Measures Results/Orders Lab Results Laboratory Tests Test 04/28/19 14:35 Range/Units White Blood Count 8.8 4.3-11.0 10^3/uL Red Blood Count 4.44 4.35-5.85 10^6/uL Hemoglobin 13.8 11.5-16.0 G/DL Hematocrit 41 35-52 % Mean Corpuscular Volume 93 80-99 FL Mean Corpuscular Hemoglobin 31 25-34 PG Mean Corpuscular Hemoglobin Concent 33 32-36 G/DL Red Cell Distribution Width 13.1 10.0-14.5 % Platelet Count 232 130-400 10^3/uL Mean Platelet Volume 10.2 7.4-10.4 FL Neutrophils (%) (Auto) 83 H 42-75 % Lymphocytes (%) (Auto) 11 L 12-44 % Monocytes (%) (Auto) 6 0-12 % Eosinophils (%) (Auto) 0 0-10 % Basophils (%) (Auto) 0 0-10 % Neutrophils # (Auto) 7.3 1.8-7.8 X 10^3 Lymphocytes # (Auto) 0.9 L 1.0-4.0 X 10^3 Monocytes # (Auto) 0.5 0.0-1.0 X 10^3 Eosinophils # (Auto) 0.0 0.0-0.3 10^3/uL Basophils # (Auto) 0.0 0.0-0.1 10^3/uL Prothrombin Time 13.4 12.2-14.7 SEC INR Comment 1.0 0.8-1.4 Activated Partial Thromboplast Time 28 24-35 SEC Sodium Level 138 135-145 MMOL/L Potassium Level 4.3 3.6-5.0 MMOL/L Chloride Level 101 98-107 MMOL/L Carbon Dioxide Level 26 21-32 MMOL/L Anion Gap 11 5-14 MMOL/L Blood Urea Nitrogen 9 7-18 MG/DL Creatinine 0.77 0.60-1.30 MG/DL Estimat Glomerular Filtration Rate > 60 BUN/Creatinine Ratio 12 Glucose Level 99 70-105 MG/DL Calcium Level 10.2 H 8.5-10.1 MG/DL Corrected Calcium 9.9 8.5-10.1 MG/DL Magnesium Level 2.5 H 1.8-2.4 MG/DL Total Bilirubin 0.6 0.1-1.0 MG/DL Aspartate Amino Transf (AST/SGOT) 30 5-34 U/L Alanine Aminotransferase (ALT/SGPT) 21 0-55 U/L Alkaline Phosphatase 62 40-136 U/L Troponin I < 0.028 <0.028 NG/ML B-Type Natriuretic Peptide 79.7 <100.0 PG/ML Total Protein 7.9 6.4-8.2 GM/DL Albumin 4.4 3.2-4.5 GM/DL TSH [place] Testing 0.84 0.35-4.94 UIU/ML Vital Signs/I&O 04/28/19 04/28/19 13:00 16:07 Temp 98.9 98.9 Pulse 86 75 Resp 18 20 B/P (MAP) 164/65 (98) 118/73 (88) Pulse Ox 97 96 O2 Delivery Room Air Blood Pressure Mean: 98 Progress Progress Note : Time: 15:53 Progress Note I have seen and evaluated the patient. I've informed her of her laboratory, EKG, and imaging studies. She is still symptom-free at this time. She agrees with plan of care, plans for discharge, return precautions were given. Diagnostic Imaging Diagonstic Imaging: Xray Plain Films/CT/US/NM/MRI: chest Comments [facility] [place], [place] NAME: [facility] REC#: [id number] PT STATUS: REG ER : 1930 PHYSICIAN: LAURY HOWARD DO ADMIT DATE: 04/28/19/ER Draft Date of Exam:04/28/19 CHEST 1 VIEW, AP/PA ONLY INDICATION: Weakness, hypertension. EXAMINATION: Portable chest at 3:21 p.m. FINDINGS: Heart size and pulmonary vascularity are normal. Lungs are clear. There are no effusions or pneumothoraces. There is scoliosis of the lower thoracic spine convex left. IMPRESSION: No acute abnormality in the chest. Dictated on workstation # [id number] Dict: 04/28/19 1533 Trans: 04/28/19 1541 [facility] [id number] Interpreted by: RYAN REA MD Electronically signed by: Departure Impression Primary Impression: Labile hypertension Disposition: 01 HOME, SELF-CARE Condition: Stable/Unchanged Departure-Patient Inst. Decision time for Depature: 15:53 Referrals: DONALD VALDEZ DO (PCP/Family) Primary Care Physician Patient Instructions: High Blood Pressure (DC) Add. Discharge Instructions: Resume your home medications as previously prescribed. Follow-up with Dr. Valdez within 1 week for recheck. Return back to the emergency room for worsening symptoms or concerns as needed. All discharge instructions reviewed with patient and/or family. Voiced understanding. DEJAH PINEDA April 28, 2019 14:28
--- NOTE | 2019-04-28 15:00 | NUR ---
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
[2019-04-28 15:06] LABS: BASOPHILS % (AUTO) 0 % (0-10); EOSINOPHILS % (AUTO) 0 % (0-10); HEMATOCRIT 41 % (35-52); HEMOGLOBIN 13.8 G/DL (11.5-16.0); LYMPHOCYTES # (AUTO) 0.9 X 10^3 (1.0-4.0); LYMPHOCYTES % (AUTO) 11 % (12-44); MEAN CORPUSCULAR HEMOGLOBIN 31 PG (25-34); MEAN CORPUSCULAR HGB CONC 33 G/DL (32-36); MEAN CORPUSCULAR VOLUME 93 FL (80-99); MEAN PLATELET VOLUME 10.2 FL (7.4-10.4); MONOCYTES # (AUTO) 0.5 X 10^3 (0.0-1.0); MONOCYTES % (AUTO) 6 % (0-12); NEUTROPHILS # (AUTO) 7.3 X 10^3 (1.8-7.8); NEUTROPHILS % (AUTO) 83 % (42-75); PLATELET COUNT 232 10^3/uL (130-400); RED CELL DISTRIBUTION WIDTH 13.1 % (10.0-14.5); WHITE BLOOD COUNT 8.8 10^3/uL (4.3-11.0)
[2019-04-28 15:18] LABS: PROTHROMBIN TIME PATIENT 13.4 SEC (12.2-14.7)
[2019-04-28 15:27] LABS: ALANINE AMINOTRANSFERASE 21 U/L (0-55); ALBUMIN 4.4 GM/DL (3.2-4.5); ALKALINE PHOSPHATASE 62 U/L (40-136); BILIRUBIN,TOTAL 0.6 MG/DL (0.1-1.0); BUN/CREATININE RATIO 12; CALCIUM 10.2 MG/DL (8.5-10.1); CARBON DIOXIDE 26 MMOL/L (21-32); CHLORIDE 101 MMOL/L (98-107); CREATININE SERUM 0.77 MG/DL (0.60-1.30); GFR ESTIMATED > 60; GLUCOSE 99 MG/DL (70-105); MAGNESIUM 2.5 MG/DL (1.8-2.4); POTASSIUM 4.3 MMOL/L (3.6-5.0); SODIUM 138 MMOL/L (135-145); TOTAL PROTEIN 7.9 GM/DL (6.4-8.2)
--- NOTE | 2019-04-28 15:41 | Diagnostic Imaging Report ---
INDICATION: Weakness, hypertension. EXAMINATION: Portable chest at 3:21 p.m. FINDINGS: Heart size and pulmonary vascularity are normal. Lungs are clear. There are no effusions or pneumothoraces. There is scoliosis of the lower thoracic spine convex left. IMPRESSION: No acute abnormality in the chest. Dictated by: Dictated on workstation # [id number]
[2019-04-28 15:49] LABS: TSH (THYROID ANALYZER) 0.84 UIU/ML (0.35-4.94)
[2019-04-28 16:07] VITALS: BP 118/73
== END 2019-04-28 16:07 | disposition home or self-care (01) ==
LOC: ER 12:53
DX: I10 Essential (primary) hypertension (principal); K21.9 Gastro-esophageal reflux disease without esophagitis; Z85.3 Personal history of malignant neoplasm of breast; Z87.440 Personal history of urinary (tract) infections; Z79.82 Long term (current) use of aspirin; Z90.89 Acquired absence of other organs; Z90.710 Acquired absence of both cervix and uterus
CPT/HCPCS: 36415; 71045; 80053; 83735; 83880; 84443; 84484; 85025; 85610; 85730; 93005; 93041

== ENCOUNTER 2019-05-07 08:31 | Outpatient (RCR) | payer MEDICARE, OTHER | END 2019-08-05 | disposition home or self-care (01) | LOC: CARD 08:31 | PROVIDERS: ATTEND Family Medicine | DX: R00.2 Palpitations (principal) | CPT/HCPCS: 93225; 93226 ==